=== PATIENT | male | born 1995 | race Two or more races ===

== ENCOUNTER → 2020-07-02 13:30 | Outpatient (CLI) | payer OTHER, SELFPAY ==
[2020-07-04 17:02] LABS: Covid-19 Nasal PCR Sendout UK Not Detected
== END ==
PROVIDERS: Visit Provider Nurse Practitioner Family
DX: Z03.818 Encounter for observation for suspected exposure to other biological agents ruled out (principal)
CPT/HCPCS: U0003

== ENCOUNTER 2020-08-19 16:47 | Emergency (ER) | payer OTHER, SELFPAY ==
[2020-08-19 16:56] VITALS: BP 119/58; PULSE 76; RESP 17; TEMP 36.8; O2SAT 99; BMI 31.1
--- NOTE | 2020-08-19 17:03 | XR_ITS ---
PROCEDURE: XR HAND RT MIN 3V CLINICAL INDICATION: FALL Posttraumatic pain COMPARISON: No exams were available for comparison FINDINGS: There is a transverse fracture involving the mid shaft of the 2nd metacarpal nondisplaced and nonangulated. The joint spaces are well-preserved. No significant degenerative/arthritic changes. No erosive changes evident. Other findings:None. IMPRESSION: Nondisplaced transverse fracture mid shaft 2nd metacarpal Dictated by: Adin Jones MD 08/19/2020 20:34 Adin Jones MD in [place] 08/19/2020 20:34
[2020-08-19 17:04] VITALS: BP 119/58; PULSE 76; RESP 17; TEMP 36.8; O2SAT 99; BMI 31.1
--- NOTE | 2020-08-19 18:07 | HMH.EDUTC ---
[facility] Disposition Clinical Impression: Right hand fracture Qualifiers: Encounter type: initial encounter Fracture type: closed Qualified Code(s): S62.91XA - Unspecified fracture of right wrist and hand, initial encounter for closed fracture Disposition: Home, Self-Care Condition on Discharge: Good Instructions: DI for a Hand Fracture, How to Take Care of Your Splint, Hand Fracture Additional Instructions: Rest the extremity, apply ice for 15 minutes as tolerated three or four times per day, Wear the splint, elevate the extremity as much time as tolerated. Take ibuprofen for pain. Follow up with Dr. Willis (orthopedics). I called her regarding your x-ray. Please call her office in the morning to set up an appointment when she wants to see you. Follow up with your regular doctor. GO TO THE ER FOR ANY WORSENING SYMPTOMS Prescriptions: Ibuprofen [Ibuprofen 800mg Tablet] 800 mg PO Q8HP PRN #30 tab PRN Reason: Moderate Pain Transmission Status: Received by [facility] Referrals: PCP,No [Primary Care Provider] - Radha Willis MD [Physician] - Forms: Work/School Release Time of Disposition: 18:11 Medical Decision Making - Medical Records Medical records reviewed: No: I reviewed the patient's medical records. - Dhiraj Inquiry Pt receiving controlled substance: No Vital Signs: 08/19/20 16:56 08/19/20 17:04 Temperature 98.3 F 98.3 F Temperature Source Oral Oral Pulse Rate [Right Radial] 76 76 Respiratory Rate 17 17 Blood Pressure [Right Arm] 119/58 L 119/58 L Blood Pressure Mean [Right Arm] 78 78 Blood Pressure Source [Right Arm] Automatic Cuff Blood Pressure Position [Right Arm] Sitting 02 Sat by Pulse Oximetry 99 99 Oxygen Delivery Method Room Air Room Air Orders (Tests/Meds): ORDERS Category Date Time Status Hand XR right minimum 3 views [XR hand RT min 3V] Stat Exams 08/19/20 17:03 Taken - Radiology Data #1 Image(s): Hand Image Reviewed: Yes I reviewed the patient's radiology image Preliminary Findings: Abnormal fractured 2nd metacarpal. [facility] HPI - General Stated complaint: AO fall 08/19/20 injured R hand Time Seen by Provider: 08/19/20 17:00 Mode of Arrival: Ambulatory Source of Information: Patient Limitations: No Limitations Description of Symptoms (Recalled from Triage Doc. by RN): pt reports to ed triage with c/o right hand pain/injury after falling approx 1 hour ago. HEENT Symptoms (Recalled from RN notes): No Resp Symptoms (Recalled from RN notes): No Skin Symptoms (Recalled from RN notes): No MS Symptoms (Recalled from RN notes): Yes Functional Status (Recalled from RN notes): WNL - History of Present Illness Provider Complaint: He states that he fell in his yard approx 1 hour ago. He came down on his right hand. He is having right hand pain and swelling. He denies any other injury. - Related Data Previous Rx's Medication Instructions Recorded Ibuprofen [Ibuprofen 800mg 800 mg PO Q8HP PRN #30 tab 08/19/20 Tablet] Allergies Allergy/AdvReac Type Severity Reaction Status Date / Time NO KNOWN DRUG ALLERGIES Allergy Unknown Uncoded 10/23/17 15:00 - Worker's Comp Is this a Worker's Comp case?: No [facility] History - Hepatitis A Screen Drug use history?: No High risk sexual behaviors?: No History of sexually transmitted infection?: No Currently employed?: No Childcare worker?: No Do you have indoor plumbing?: Yes Do you have electricity?: Yes Attestation statement:: This patient has been screened for Hepatitis A risk factors. I have reviewed the patient's past medical history: Yes - Social History Smoking Status: Current every day smoker Tobacco Type: cigarettes # Packs/Day (cigarettes): 1 Alcohol Intake: never Occupational Status: employed ROS Obtained: Yes All systems reviewed & no additional complaints - Constitutional Constitutional: Reports system reviewed and no additional complaints, except as d
[2020-08-19 18:24] VITALS: BP 119/58; PULSE 76; RESP 17; TEMP 36.8; O2SAT 99
== END 2020-08-19 18:25 | disposition home or self-care (01) ==
PROVIDERS: Emergency Provider Nurse Practitioner Family
DX: S62.350A Nondisplaced fracture of shaft of second metacarpal bone, right hand, initial encounter for closed fracture (principal); W01.0XXA Fall on same level from slipping, tripping and stumbling without subsequent striking against object, initial encounter; Y92.017 Garden or yard in single-family (private) house as the place of occurrence of the external cause; F17.210 Nicotine dependence, cigarettes, uncomplicated
CPT/HCPCS: 73130; 99203

== ENCOUNTER 2020-08-28 02:53 | Emergency (ER) | payer OTHER, SELFPAY ==
[2020-08-28 03:02] VITALS: BP 158/76; PULSE 110; RESP 16; TEMP 36.7; O2SAT 98; BMI 30.5
--- NOTE | 2020-08-28 03:41 | XR_ITS ---
PROCEDURE: XR HAND RT 2V CLINICAL INDICATION: swelling Posttraumatic pain, follow-up fracture COMPARISON: CR XR HAND RT MIN 3V from 08/19/2020 FINDINGS: There is a cast in place stabilizing a nondisplaced midshaft fracture of the 2nd metacarpal which is in good alignment. The joint spaces are well-preserved. No significant degenerative/arthritic changes. No erosive changes evident. Other findings:None. IMPRESSION: Midshaft 2nd metacarpal fracture unchanged except for interval cast placement Dictated by: Adin Jones MD 08/28/2020 07:00 Adin Jones MD in [place] 08/28/2020 07:00
--- NOTE | 2020-08-28 04:05 | HMH.EDGENADL ---
ED Disposition Clinical Impression: Swelling of right hand, First metacarpal bone fracture Disposition: Home, Self-Care Condition on Discharge: Good Additional Instructions: Follow-up with orthopedics to get a cast placed on Sunday. No overuse of that hand rest until you see orthopedics Referrals: Pj Arreola APRN [Primary Care Provider] - - Critical Care Critical Care Time: No Attestation: On 08/28/20, the high probability of a clinically significant, sudden or life threatening deterioration of the following system(s) required my full and direct attention, intervention and personal management. The time I documented below is in addition to time spent performing reported procedures but includes the following listed in this critical care notation. Medical Decision Making - Medical Records Medical records reviewed: Yes: I reviewed the patient's medical records. - Dhiraj Inquiry Pt receiving controlled substance: No Vital Signs: 08/28/20 03:02 Temperature 98.0 F Temperature Source Oral Pulse Rate [Right Brachial] 110 H Respiratory Rate 16 Blood Pressure [Right Arm] 158/76 H Blood Pressure Mean [Right Arm] 103 Blood Pressure Source [Right Arm] Automatic Cuff Blood Pressure Position [Right Arm] Sitting 02 Sat by Pulse Oximetry 98 Oxygen Delivery Method Room Air - Lab Data Lab results reviewed: Yes: I reviewed the patient's lab results. Orders (Tests/Meds): ORDERS Category Date Time Status Hand XR right 2 views [XR hand RT 2V] Stat Exams 08/28/20 03:41 Taken - Radiology Data #1 Image(s): Wrist, Hand Preliminary Findings: Abnormal (First metacarpal fracture) Medical Decision Narrative: I spoke to Dr. Weeks and Dr. Weeks agreed to for us to go ahead and get the cast off put him in a soft cast him follow-up with orthopedics on Sunday to get another cast placed. General Adult HPI - General Chief complaint: Recheck/Abnormal Lab/Rx Stated complaint: Right hand in cast is swelling Time Seen by Provider: 08/28/20 04:00 Mode of Arrival: Family Vehicle Source of Information: Patient Limitations: No Limitations Description of Symptoms (Recalled from ER Triage Doc. by RN): rue swelling and pain new onset tonight while at work; states he fell a week ago, broke his hand as a result and had a cast placed by dr hernandez; pt is due to follow up on 11/2. - History of Present Illness HPI narrative: 25-year-old male presents to the emergency department with excessive swelling in his right hand and arm. Patient does have a cast on his arm secondary to a first metacarpal fracture. The injury took place about a week ago he has been in the cast about 6 days. He has been still working with no restrictions work this evening overuse of the hand and now is got excessive swelling and the cast is extremely uncomfortable on his arm. Patient does state that the pain due to the swelling is 8 out of 10 classifies it as sharp. He has tried icing the hand with no relief. Exacerbating factors include any sort of movement and also presently right now in the cast.Patient denies any recent cough or shortness of breath, patient denies any sore throat or headache, patient denies any loss of taste or smell, patient denies any malaise or fatigue, patient denies any abdominal pain nausea vomiting or diarrhea. - Related Data Previous Rx's Medication Instructions Recorded Ibuprofen [Ibuprofen 800mg 800 mg PO Q8HP PRN #30 tab 08/19/20 Tablet] Allergies Allergy/AdvReac Type Severity Reaction Status Date / Time NO KNOWN DRUG ALLERGIES Allergy Unknown Uncoded 08/20/20 15:52 [facility] History - Hepatitis A Screen Drug use history?: No High risk sexual behaviors?: No History of sexually transmitted infection?: No Currently employed?: No Childcare worker?: No Do you have indoor plumbing?: Yes Do you have electricity?: Yes Attestation statement:: This patient has been screened for Hepatitis A risk fac
--- NOTE | 2020-08-28 04:24 | PC.NURSE ---
ER consulted with registration officer ortho MD Micky. MD Micky gives ok to remove hard cast and place soft splint. Pt to follow up with primary ortho .
[2020-08-28 04:35] VITALS: BP 135/66; PULSE 95; RESP 15; TEMP 36.7; O2SAT 98
== END 2020-08-28 04:39 | disposition home or self-care (01) ==
PROVIDERS: Emergency Provider Family Medicine; PCP Nurse Practitioner Family
DX: S62.300A Unspecified fracture of second metacarpal bone, right hand, initial encounter for closed fracture (principal); W19.XXXA Unspecified fall, initial encounter; F17.210 Nicotine dependence, cigarettes, uncomplicated
CPT/HCPCS: 29125; 73120; 99283

== ENCOUNTER → 2020-08-30 14:11 | Outpatient (CLI) | payer OTHER, SELFPAY ==
--- NOTE | 2020-08-30 14:15 | XR_ITS ---
PROCEDURE: XR WRIST RT MIN 3V CLINICAL INDICATION: rt hand fx Pain COMPARISON: CR XR HAND RT MIN 3V from 08/30/2020 FINDINGS: There is a nondisplaced fracture involving the mid shaft of the 2nd metacarpal. No other significant anomalies are evident. The joint spaces are well-preserved. No significant degenerative/arthritic changes. No erosive changes evident. Other findings:None. IMPRESSION: Nondisplaced fracture mid shaft 2nd metacarpal Dictated by: Adin Jones MD 08/30/2020 15:03 Adin Jones MD in [place] 08/30/2020 15:03
--- NOTE | 2020-08-30 14:15 | XR_ITS ---
PROCEDURE: XR HAND RT MIN 3V CLINICAL INDICATION: hand fx f/u Fracture follow-up COMPARISON: CR XR HAND RT MIN 3V from 08/19/2020 CR XR HAND RT 2V from 08/28/2020 FINDINGS: Nondisplaced fracture involves the mid shaft of the 2nd metacarpal. No significant displacement. There is minimal anterior angulation of the distal fracture fragment. The cast has been removed. The joint spaces are well-preserved. No significant degenerative/arthritic changes. No erosive changes evident. Other findings:None. IMPRESSION: No change nondisplaced fracture midshaft 2nd metacarpal Dictated by: Adin Jones MD 08/30/2020 15:04 Adin Jones MD in [place] 08/30/2020 15:04
== END ==
PROVIDERS: Visit Provider Orthopaedic Surgery
DX: S62.91XA Unspecified fracture of right hand, initial encounter for closed fracture (principal); M79.89 Other specified soft tissue disorders; S62.209A Unspecified fracture of first metacarpal bone, unspecified hand, initial encounter for closed fracture
CPT/HCPCS: 73110; 73130

== ENCOUNTER → 2020-09-20 09:36 | Outpatient (CLI) | payer OTHER, SELFPAY ==
--- NOTE | 2020-09-20 09:47 | XR_ITS ---
PROCEDURE: XR HAND RT MIN 3V CLINICAL INDICATION: RT hand FX FU Follow-up fracture COMPARISON: CR XR HAND RT MIN 3V from 08/19/2020 CR XR HAND RT 2V from 08/28/2020 CR XR HAND RT MIN 3V from 08/30/2020 FINDINGS: Good alignment healing midshaft fracture of the 2nd metacarpal. Developing callus formation is noted. There is minimal anterior angulation of the distal fracture fragment. The joint spaces are well-preserved. No significant degenerative/arthritic changes. No erosive changes evident. Other findings:None. IMPRESSION: Healing 2nd metacarpal fracture with good alignment Dictated by: Adin Jones MD 09/20/2020 16:33 Adin Jones MD in [place] 09/20/2020 16:33
== END ==
PROVIDERS: Visit Provider Orthopaedic Surgery
DX: S62.209A Unspecified fracture of first metacarpal bone, unspecified hand, initial encounter for closed fracture (principal); S62.91XA Unspecified fracture of right hand, initial encounter for closed fracture
CPT/HCPCS: 73130

== ENCOUNTER → 2020-10-04 14:25 | Outpatient (CLI) | payer OTHER, SELFPAY ==
--- NOTE | 2020-10-04 14:37 | XR_ITS ---
PROCEDURE: XR HAND RT MIN 3V CLINICAL INDICATION: non-displaced fracture R index metacarpal shaft COMPARISON: CR XR HAND RT MIN 3V from 08/19/2020 CR XR HAND RT 2V from 08/28/2020 CR XR HAND RT MIN 3V from 08/30/2020 CR XR HAND RT MIN 3V from 09/20/2020 FINDINGS: Healing nondisplaced fracture noted at the mid aspect of the 2nd metacarpal with good alignment of the fracture fragments. Increasing callus formation is noted. Fracture line is still visible. Other findings:None. IMPRESSION: Healing midshaft 2nd metacarpal fracture Dictated by: Adin Jones MD 10/04/2020 14:57 Adin Jones MD in [place] 10/04/2020 14:57
== END ==
PROVIDERS: Visit Provider Orthopaedic Surgery
DX: S62.309A Unspecified fracture of unspecified metacarpal bone, initial encounter for closed fracture (principal); S62.91XA Unspecified fracture of right hand, initial encounter for closed fracture
CPT/HCPCS: 73130

== ENCOUNTER 2021-01-29 16:55 | Emergency (ER) | payer OTHER, SELFPAY ==
[2021-01-29 17:08] VITALS: BP 127/75; PULSE 85; RESP 16; TEMP 36.8; O2SAT 96; BMI 33.2
--- NOTE | 2021-01-29 17:12 | HMH.EDUTC ---
[facility] [place] Disposition Clinical Impression: COVID-19 virus test result unknown Disposition: Home, Self-Care Condition on Discharge: Good Instructions: DI for COVID-19 (Suspected or Confirmed ), Preventing the Spread of Coronavirus Discharge Instructions Additional Instructions: self isolate until test results are known to be neg Referrals: PCP,No [Primary Care Provider] - Time of Disposition: 17:20 Medical Decision Making - Dhiraj Inquiry Pt receiving controlled substance: No Vital Signs: 01/29/21 17:08 Temperature 98.3 F Temperature Source Oral Pulse Rate [Right] 85 Respiratory Rate 16 Blood Pressure [Right Arm] 127/75 Blood Pressure Mean [Right Arm] 92 Blood Pressure Source [Right Arm] Automatic Cuff Blood Pressure Position [Right Arm] Sitting 02 Sat by Pulse Oximetry 96 Oxygen Delivery Method Room Air Orders (Tests/Meds): ORDERS Category Date Time Status Covid-19 Nasal PCR ([facility]) Routine Lab 01/29/21 17:04 Ordered [facility] HPI - General Chief complaint: [facility] Stated complaint: covid test Time Seen by Provider: 01/29/21 17:13 Mode of Arrival: Ambulatory Source of Information: Patient Limitations: No Limitations Description of Symptoms (Recalled from Triage Doc. by RN): pt needs a covid test. pt states he was around someone at work that is covid positive. he is unsure what day. pt states he has a cough. HEENT Symptoms (Recalled from RN notes): No Resp Symptoms (Recalled from RN notes): Yes (cough) Skin Symptoms (Recalled from RN notes): No MS Symptoms (Recalled from RN notes): No Functional Status (Recalled from RN notes): na - History of Present Illness Provider Complaint: 26 yr old male presents for covid test, pt states he was around someone at work that is covid positive. he is unsure what day. pt states he has a cough no other symptoms. - Related Data Previous Rx's Medication Instructions Recorded Ibuprofen [Ibuprofen 800mg 800 mg PO Q8HP PRN #30 tab 08/19/20 Tablet] Allergies Allergy/AdvReac Type Severity Reaction Status Date / Time No Known Allergies Allergy Verified 01/29/21 17:11 - Worker's Comp Is this a Worker's Comp case?: No [facility] History - Hepatitis A Screen Drug use history?: No High risk sexual behaviors?: No History of sexually transmitted infection?: No Currently employed?: No Childcare worker?: No Do you have indoor plumbing?: Yes Do you have electricity?: Yes Attestation statement:: This patient has been screened for Hepatitis A risk factors. I have reviewed the patient's past medical history: Yes Fractures: Yes - Social History Smoking Status: Current every day smoker Tobacco Type: cigarettes # Packs/Day (cigarettes): 1 Alcohol Intake: never Occupational Status: employed Family Hx:: No significant family history ROS Obtained: Yes Systems reviewed as appropriate & no additional complaints - Constitutional Constitutional: Reports system reviewed and no additional complaints, except as docu, Denies fever(s) - Eyes Eyes: Reports system reviewed and no additional complaints, except as docu, Denies dry eyes - ENT Ears, Nose, Mouth, and Throat: Reports system reviewed and no additional complaints, except as docu, Denies sore throat - Cardiovascular Cardiovascular: Reports system reviewed and no additional complaints, except as docu, Denies chest pain at rest - Respiratory Respiratory: Reports system reviewed and no additional complaints, except as docu, Denies dyspnea on exertion - Gastrointestinal Gastrointestingal: Reports: system reviewed and no additional complaints, except as docu. Denies: bright red blood in stools - Genitourinary Male Genitourinary: Reports system reviewed and no additional complaints, except as docu - Musculoskeletal Musculoskeletal: Reports system reviewed and no additional complaints, except as docu - Integumentary/Breasts Skin/Breast: Reports system reviewed and no additional co
[2021-01-29 17:13] VITALS: BP 122/74; PULSE 79; RESP 16; TEMP 36.6
== END 2021-01-29 17:23 | disposition home or self-care (01) ==
PROVIDERS: Emergency Provider Nurse Practitioner Family
DX: Z20.822 Contact with and (suspected) exposure to COVID-19 (principal); R05 Cough; F17.210 Nicotine dependence, cigarettes, uncomplicated
CPT/HCPCS: 99202; G0463; U0003

== ENCOUNTER 2021-02-28 11:40 | Emergency (ER) | payer OTHER, SELFPAY ==
[2021-02-28 12:00] VITALS: BP 119/67; PULSE 77; RESP 19; TEMP 37.2; O2SAT 98; BMI 33.2
[2021-02-28 12:09] LABS: UTC Strep Screen (Rapid) Positive (Negative)
--- NOTE | 2021-02-28 12:28 | HMH.EDUTC ---
[facility] [place] Impression: Strep throat Disposition: Home, Self-Care Condition on Discharge: Good Instructions: Strep Throat, DI for Strep Throat, Amoxicillin and Clavulanic Acid Additional Instructions: *Monitor Temp, Over the counter Motrin or Tylenol as directed/as needed Tylenol every 4 hours and Motrin every 6 hours (as long as your family doctor has told you that you can take it) for fever or pain. and straight to ER if unable to lower temp less than 101.0 after medication given *Warm salt water gargles may help to soothe the throat *Throat Lozenges *Warm fluids like tea with honey may help to soothe the throat *Sleep elevated *Humidifier/Vaporizer *If you did not take Penicillin shot or was unable to, start taking antibiotic immediately and make sure that you take it for the FULL length of time although you should start to feel better in 24-48 hours *change toothbrush and toothpaste 24-48 hours after starting to take antibiotics so you do not reinfect yourself Monitor Temp. Tylenol and/or Ibuprofen as needed. ER if fever is no less than 101 despite alternating Tylenol and Ibuprofen * Encourage fluids, water, Gatorade, powerade, pedialyte if infant/toddler/or child *Cold fluids, popsicles and ice cream may feel good on his throat Follow up IMMEDIATELY for new or worsening symptoms or no Noticeable improvement over the next 48-72 hours. 911 for difficulty breathing or swallowing Over the counter Debrox as directed on package may help with wax removal Prescriptions: Amoxicillin/Potassium Clav [Augmentin 875-125 Tablet] 1 tab PO Q12H 10 Days #20 tab Transmission Status: Pending to [id number] Referrals: PCP,No [Primary Care Provider] - As needed Forms: Work/School Release Time of Disposition: 12:33 Medical Decision Making - Dhiraj Inquiry Pt receiving controlled substance: No Dhiraj was queried for this patient: No Vital Signs: 02/28/21 12:00 Temperature 98.9 F Temperature Source Oral Pulse Rate [Right Brachial] 77 Respiratory Rate 19 Blood Pressure [Right Arm] 119/67 Blood Pressure Mean [Right Arm] 84 Blood Pressure Source [Right Arm] Automatic Cuff Blood Pressure Position [Right Arm] Sitting 02 Sat by Pulse Oximetry 98 Oxygen Delivery Method Room Air - Lab Data Lab results reviewed: Yes: I reviewed the patient's lab results. Lab Results 02/28/21 11:47: Strep Scn Rapid Clinic Positive [place] [facility] [place] - General Stated complaint: possible strep Time Seen by Provider: 02/28/21 12:29 Mode of Arrival: Ambulatory Source of Information: Patient Limitations: No Limitations Description of Symptoms (Recalled from Triage Doc. by RN): PT COMPLAINS OF SORE THROAT AND LEFT EAR PAIN HEENT Symptoms (Recalled from RN notes): Yes Resp Symptoms (Recalled from RN notes): No Skin Symptoms (Recalled from RN notes): No MS Symptoms (Recalled from RN notes): No Functional Status (Recalled from RN notes): WNL - History of Present Illness Provider Complaint: Patient states that he has been having sore throat and pain in his left ear for about 3 days State that it has continued to get worse States that when he swallows feels like he is swallowing glass so he came in today to get checked - Related Data Previous Rx's Medication Instructions Recorded Ibuprofen [Ibuprofen 800mg 800 mg PO Q8HP PRN #30 tab 08/19/20 Tablet] Amoxicillin/Potassium Clav 1 tab PO Q12H 10 Days #20 tab 02/28/21 [Augmentin 875-125 Tablet] Allergies Allergy/AdvReac Type Severity Reaction Status Date / Time No Known Allergies Allergy Verified 01/29/21 17:11 - Worker's Comp Is this a Worker's Comp case?: No [facility] History - Hepatitis A Screen Drug use history?: No High risk sexual behaviors?: No History of sexually transmitted infection?: No Currently employed?: No Childcare worker?: No Do you have indoor plumbing?: Yes Do you have electricity?: Yes Attestation statement:: This patient h
[2021-02-28 12:43] VITALS: BP 119/67; PULSE 77; RESP 98; TEMP 37.2; O2SAT 98
== END 2021-02-28 12:44 | disposition home or self-care (01) ==
PROVIDERS: Emergency Provider Nurse Practitioner
DX: J02.0 Streptococcal pharyngitis (principal); F17.210 Nicotine dependence, cigarettes, uncomplicated
CPT/HCPCS: 87880; 99202; G0463

== ENCOUNTER 2022-10-11 13:10 | Emergency (ER) | payer SELFPAY ==
[2022-10-11 13:41] VITALS: BP 140/80; PULSE 85; RESP 18; TEMP 36.8; O2SAT 99; BMI 33.9
--- NOTE | 2022-10-11 14:15 | EXP.UTC ---
Discharge Plan Disposition Patient Disposition: Home, Self-Care Condition: Good Prescriptions Prescriptions: New oseltamivir [Tamiflu] 75 mg capsule 75 mg PO Q12H 5 Days Qty: 10 0RF No Action ibuprofen 800 MG tablet 800 mg PO Q8HP PRN (Reason: Moderate Pain) Qty: 30 0RF amoxicillin-pot clavulanate 1 EACH tablet 1 tab PO Q12H 10 Days Qty: 20 0RF Referrals Follow up/Referrals: Provider,Referral, MD [Primary Care Provider] - See instructions Activity Restrictions/Add. Instructions Additional Instructions/Restrictions: Start Tamiflu today if you are going to take it. Discussed risk and possible benefits. Lots of rest Increase Fluids water, Gatorade, powerade, pedialyte,if infant/toddler/child Alternate Tylenol and / or ibuprofen as discussed for fever, aches, chills Follow up IMMEDIATELY with your family doctor for new or worsening Symptoms OR no noticeable improvement over the next 48-72 hours, 911 for difficulty or breathing You or your child area contagious until no fever, aches, chills for 24 hours with medication for symptoms Help Prevent the spread of influenza: ?Wash your hands often. Use soap and water. Wash your hands after you use the bathroom, change a child's diapers, or sneeze. Wash your hands before you prepare or eat food. Use gel hand cleanser that has 60% alcohol, when soap and water are not available. Do not touch your eyes, nose, or mouth unless you have washed your hands first. Cover your mouth when you sneeze or cough. Cough into a tissue or the bend of your arm. If you use a tissue, throw it away immediately and wash your hands. Clean shared items with a germ-killing cooker cleaner. Clean table surfaces, doorknobs, and light switches. Do not share towels, silverware, and dishes with people who are sick. Wash bed sheets, towels, silverware, and dishes with soap and water. Wear a mask over your mouth and nose if you are sick. The face mask may help protect others from becoming infected with the flu. Wear the mask when in common areas of your home or if you seek care with a healthcare provider. Stay away from others if you are sick. Stay at home until 24 hours after your fever and symptoms are gone. ? Clinical Impressions Clinical Impression: Flu-like symptoms Stand Alone Forms Stand Alone Forms: Work/School Release Instructions Patient Instructions: DI for Influenza -- Adult, Oseltamivir Discharge ED Provider[place] Imelda Zhou [facility] [place] General Stated complaint: Fever, bodyaches Mode of Arrival: Ambulatory Source of Information: Patient Limitations: No Limitations Time Seen by Provider: 10/11/22 14:15 Description of Symptoms (Recalled from Triage Doc. by RN): EXPOSED TO FLU, BODY ACHES, CHILLS AND HEADACHE STARTE LAST NIGHT HEENT Symptoms (Recalled from RN notes): Yes Resp Symptoms (Recalled from RN notes): No Skin Symptoms (Recalled from RN notes): No MS Symptoms (Recalled from RN notes): Yes Functional Status (Recalled from RN notes): WNL History of Present Illness Provider Complaint: Patient states that he was around his mother in law that has the flu State that he feels like he has the flu States that he has been having body aches, chills, fever all last night and headache States that he wants to get tested for the flu Related Data Previous Rx's Medication Instructions Recorded ibuprofen 800 mg tablet 800 mg PO Q8HP PRN Moderate Pain 08/19/20 #30 tabs amoxicillin 875 mg-potassium 1 tab PO Q12H 10 days #20 tabs 02/28/21 clavulanate 125 mg tablet oseltamivir 75 mg capsule (Tamiflu) 75 mg PO Q12H 5 days #10 caps 10/11/22 Allergies Allergy/AdvReac Type Severity Reaction Status Date / Time No Known Allergies Allergy [place]
[2022-10-11 14:37] LABS: UTC Strep Screen (Rapid) Negative (Negative)
[2022-10-11 14:55] VITALS: BP 140/80; PULSE 85; RESP 18; TEMP 36.8; O2SAT 99
[2022-10-11 15:38] LABS: Coronavirus 19, PCR Not Detected (NotDetected); Influenza B, PCR Not Detected (NotDetected)
[2022-10-11 17:50] LABS: Influenza A, PCR Detected (NotDetected)
== END 2022-10-11 14:55 | disposition home or self-care (01) ==
PROVIDERS: Emergency Provider Nurse Practitioner
DX: J10.1 Influenza due to other identified influenza virus with other respiratory manifestations (principal)
CPT/HCPCS: 87880; 99212; C9803; G0463; U0003; U0005